=== PATIENT | male | born 1950 | race Two or more races ===

== ENCOUNTER 2022-01-27 19:34 | Inpatient (IN) | payer OTHER, MEDICAID ==
[~2022-01-27] VITALS: Ht 162.6 cm; Wt 77.1 kg
[2022-01-27] MEDS ORDERED: SODIUM CHLORIDE 0.9% 1,000 ML IV ONE (20:45)
[2022-01-27 21:53] LABS: Basophils # (auto) 0.1 10 ^3/uL (0-0.2); Basophils % (auto) 0.5 % (0.0-2.0); Eosinophils # (auto) 0.2 10 ^3/uL (0-0.8); Hematocrit 44.2 % (41.0-53.0); Hemoglobin 14.6 g/dL (13.5-17.5); Lymphocytes # (auto) 2.4 10 ^3/uL (0.4-5.4); Lymphocytes % (auto) 19.9 % (10.0-50.0); Mean Corpuscular Hemoglobin 28.1 pg (28.0-32.0); Mean Corpuscular Hgb Conc. 33.1 g/dL (32.0-36.0); Mean Corpuscular Volume 84.8 fL (80.0-100.0); Monocytes % (auto) 8.6 % (0.0-12.0); Neutrophils # (auto) 8.1 10 ^3/uL (1.6-8.6); Nucleated Red Blood Cells % 0.1 %; Red Blood Cells 5.21 10^6/uL (4.5-5.90); Red Cell Distribution Width 14.4 % (11.8-14.3); White Blood Cell 11.8 10^3/uL (4.4-10.8)
[2022-01-27 22:20] LABS: Albumin 3.5 g/dL (3.4-5.0); BUN/Creatinine Ratio 14.7; Bilirubin, Total 0.6 mg/dL (0.2-1.0); Calcium 9.4 mg/dL (8.5-10.1)
[2022-01-27 22:44] LABS: Urine Bacteria NONE SEEN /hpf (None Seen); Urine Blood Negative /uL (Negative); Urine Specific Gravity 1.021 (1.001-1.035); Urine WBC 1 /hpf (0 - 3)
[2022-01-27 22:55] LABS: Potassium 2.9 mmol/L (3.5-5.1)
[2022-01-27] MEDS ORDERED: POTASSIUM CHL 20 Meq TABLET PO ONE (23:30)
[2022-01-28] MEDS ORDERED: HYDROcodone-ACET 5/325MG TAB PO PRN (00:45)
[2022-01-28] MEDS ORDERED: ACETAMINOPHEN 325 MG TAB PO PRN (00:45)
[2022-01-28] MEDS ORDERED: ONDANSETRON HCL 4 MG/2 ML VIAL IV PRN (00:45)
[2022-01-28] MEDS: PANTOPRAZOLE 40 MG TAB PO SCH (09:39)
[2022-01-28] MEDS ORDERED: HCTZ 25 MG TAB PO SCH (10:00)
[2022-01-28] MEDS ORDERED: LACTULOSE 20Gm/30ML SOLN PO ONE (11:30)
[2022-01-28] MEDS ORDERED: LACTULOSE 20Gm/30ML SOLN PO PRN (11:30)
[2022-01-28] MEDS: CEFTRIAXONE SODIUM 2 GM in D5W 5% 50 ML IV SCH (12:41)
[2022-01-28] MEDS: metroNIDAZOLE 500MG/100ML 100 ML IV SCH ×2 (14:42→21:44)
[2022-01-28 17:48] VITALS: BP 128/75
[2022-01-28] MEDS ORDERED: TAMSULOSIN HYDROCHLORIDE 0.4 MG CAP PO SCH (18:00)
[2022-01-28] MEDS ORDERED: FLUT115A PO (18:34)
[2022-01-28] MEDS ORDERED: HYDR12.55 (18:34)
[2022-01-28] MEDS ORDERED: POTA-167 (18:34)
[2022-01-28] MEDS ORDERED: ALBU108A5 PO (18:34)
[2022-01-28] MEDS ORDERED: TAMS0.4C36 PO (18:34)
[2022-01-28] MEDS ORDERED: THEO300T36 PO (18:34)
[2022-01-28] MEDS ORDERED: SPIR50TA (18:34)
[2022-01-28] MEDS ORDERED: POTASSIUM EFFERVESENT TAB 25 MEQ PO ONE (18:45)
[2022-01-28 19:07] VITALS: BP 128/75
[2022-01-28] MEDS: DOCUSATE SOD 100 MG CAP PO SCH (21:45)
[2022-01-28 21:53] VITALS: BP 139/72
[2022-01-29 04:43] VITALS: BP 133/77
[2022-01-29] MEDS: metroNIDAZOLE 500MG/100ML 100 ML IV SCH (05:29)
[2022-01-29 06:51] LABS: Basophils # (auto) 0.1 10 ^3/uL (0-0.2); Basophils % (auto) 0.8 % (0.0-2.0); Eosinophils # (auto) 0.3 10 ^3/uL (0-0.8); Eosinophils % (auto) 3.8 % (0.0-7.0); Hematocrit 43.1 % (41.0-53.0); Hemoglobin 14.3 g/dL (13.5-17.5); Lymphocytes # (auto) 1.5 10 ^3/uL (0.4-5.4); Lymphocytes % (auto) 18.3 % (10.0-50.0); Mean Corpuscular Hemoglobin 28.3 pg (28.0-32.0); Mean Corpuscular Hgb Conc. 33.2 g/dL (32.0-36.0); Mean Corpuscular Volume 85.2 fL (80.0-100.0); Monocytes # (auto) 0.6 10 ^3/uL (0-1.3); Monocytes % (auto) 7.7 % (0.0-12.0); Neutrophils # (auto) 5.6 10 ^3/uL (1.6-8.6); Neutrophils % (auto) 69.4 % (37.0-80.0); Red Blood Cells 5.06 10^6/uL (4.5-5.90); Red Cell Distribution Width 14.4 % (11.8-14.3); White Blood Cell 8.1 10^3/uL (4.4-10.8)
[2022-01-29 07:04] LABS: Albumin 3.2 g/dL (3.4-5.0); Calcium 8.6 mg/dL (8.5-10.1); Potassium 3.7 mmol/L (3.5-5.1)
[2022-01-29 07:06] LABS: Bilirubin, Total 0.8 mg/dL (0.2-1.0); Total Protein 6.6 g/dL (6.4-8.2)
[2022-01-29 08:00] VITALS: BP 115/89
[2022-01-29 09:00] VITALS: BP 115/89
[2022-01-29] MEDS ORDERED: CIPR-173 PO (10:04)
[2022-01-29] MEDS ORDERED: METR500T PO (10:05)
[2022-01-29] MEDS: CEFTRIAXONE SODIUM 2 GM in D5W 5% 50 ML IV SCH (10:05)
[2022-01-29] MEDS: DOCUSATE SOD 100 MG CAP PO SCH (10:05)
[2022-01-29] MEDS: PANTOPRAZOLE 40 MG TAB PO SCH (10:05)
[2022-01-29 11:28] VITALS: BP 115/89
[2022-01-29 13:10] VITALS: BP 132/85
== END 2022-01-29 13:20 | disposition home or self-care (01) | DRG 872 ==
LOC: EDBD 19:41 → ER 19:41 → OVERFLOW 01-28 00:47 → WEST WING 01-28 17:41
PROVIDERS: ADMIT Nurse Practitioner; ATTEND Internal Medicine Nephrology
DX: A41.9 Sepsis, unspecified organism (principal); K57.32 Diverticulitis of large intestine without perforation or abscess without bleeding; E78.5 Hyperlipidemia, unspecified; E87.6 Hypokalemia; I10 Essential (primary) hypertension; J45.909 Unspecified asthma, uncomplicated; K59.00 Constipation, unspecified; N40.0 Benign prostatic hyperplasia without lower urinary tract symptoms; Z20.822 Contact with and (suspected) exposure to COVID-19
CPT/HCPCS: 36415; 74176; 80053; 81001; 83605; 83690; 84132; 85025; 93005; 96361; 96365; 96367; G0378; J0696; J3490; J7060